=== PATIENT | female | born 1970 | race African-American/Black ===

== ENCOUNTER 2021-05-11 20:55 | Emergency (ER) | payer BC, OTHER ==
[~2021-05-11] VITALS: Ht 124.5 cm; Wt 79.4 kg
[~2021-05-11 20:55] MED LIST: ALDACTONE50 MG PO; BACTRIM DS TAB1 EACH PO; IBUPROFEN 800800 MG PO; NORCO 5-325 TA1 EACH PO; RIFAMPIN 300 M300 M1
[2021-05-11] MEDS ORDERED: MINOXIDIL10 MG PO (21:17)
[2021-05-11] MEDS ORDERED: DOXYCYCLINE 10100 M2 PO (21:17)
[2021-05-11 22:12] LABS: ABSOLUTE NEUTROPHILS 8.7 thou/uL (1.4-8.2); BASOPHILS 0.4 % (0.0-2.0); HEMATOCRIT 36.9 % (37.0-47.0); LYMPHOCYTES 7.3 % (24.0-44.0); MCH 27.1 pg (26.0-34.0); MCHC 35.2 g/dL (28.0-37.0); MCV 77.1 fL (80.0-100.0); MONOCYTES 6.5 % (1.0-8.0); PLATELET COUNT 299 thou/uL (150-400); POLYS 85.8 % (36.0-66.0); RBC 4.78 mil/uL (4.20-5.00); RDW 14.2 % (10.5-14.5); WBC 10.2 thou/uL (4.0-11.0)
[2021-05-11 22:17] LABS: CALCIUM 8.7 mg/dL (8.5-10.1); CREATININE 0.8 mg/dL (0.6-1.0); POTASSIUM 3.7 mmol/L (3.5-5.1)
[2021-05-11 22:23] LABS: ALBUMIN 3.5 g/dL (3.4-5.0); TOTAL BILIRUBIN 1.2 mg/dL (0.2-1.0); TOTAL PROTEIN 7.8 g/dL (6.4-8.2)
[2021-05-11 22:48] LABS: URINE BILIRUBIN 1+ (Negative); URINE BLOOD TRACE (Negative); URINE CLARITY CLEAR; URINE COLOR YELLOW; URINE GLUCOSE-RANDOM* NEGATIVE (Negative); URINE KETONES 1+ (Negative); URINE LEUKOCYTES-REFLEX NEGATIVE (Negative); URINE NITRITE-REFLEX NEGATIVE (Negative); URINE PROTEIN (DIPSTICK) TRACE (Negative); URINE UROBILINOGEN >= 8.0 E.U./dl (0.2-1.0)
[2021-05-11 22:49] LABS: ICTOTEST (BILI CONFIRMATORY) Positive (Negative)
[2021-05-11 23:33] VITALS: BP 124/60
== END 2021-05-12 01:09 | disposition home or self-care (01) ==
LOC: ER 20:55
PROVIDERS: Emergency Medicine
DX: U07.1 COVID-19 (principal); R10.84 Generalized abdominal pain; R11.0 Nausea; Z79.899 Other long term (current) drug therapy; Z88.0 Allergy status to penicillin